=== PATIENT | male | born 1995 | race Caucasian/White ===

== ENCOUNTER 2023-11-06 16:05 | Emergency (ER) | payer OTHER, SELFPAY ==
--- NOTE | ~2023-11-06 | CT_ITS ---
EXAMINATION: CT ABDOMEN AND PELVIS WITHOUT CONTRAST CLINICAL INFORMATION: Left-sided pain. History of Crohn's disease COMPARISON: None available. TECHNIQUE: Multidetector volumetric imaging was performed from the superior aspect of the liver through the pubic symphysis. Sagittal and coronal reformatted images were obtained on the technologist's workstation. This CT examination was performed using dose optimization techniques as appropriate, variously including the following: *Automated exposure control *Adjustment of mA and/or kV according to patient size (this includes techniques or standardized protocols for targeted exams where dose is matched to indication/reason for exam; i.e. extremities or head) *Use of iterative reconstruction technique DLP: 698 mGy-cm FINDINGS: LUNG BASES: There is a small reticular opacity in the right middle lobe which may be atelectasis. No evidence of pneumoperitoneum LIVER, GALLBLADDER, AND BILIARY TREE: No suspicious abnormality in the liver. No calcified gallstone. No biliary dilation PANCREAS: Limited assessment. No definite abnormality. SPLEEN: No suspicious abnormality ADRENAL GLANDS: Within normal limits KIDNEYS AND URETERS: There is no dilation of the urinary collecting system. No opaque renal calculus. No suspicious renal mass. BLADDER: No focal bladder abnormality. GASTROINTESTINAL TRACT: The colon is collapsed but there could be diffuse colonic wall thickening. There is stranding associated with the terminal ileum which is thickened. I suspect submucosal edema and/or inflammation. There is some mesenteric stranding. There is a long segment of abnormal distal small bowel with areas of relative narrowing. There is some reticulation adjacent to some of the abnormal loops. There is an area of dilated small bowel in the lower abdomen. The duodenum is mildly distended. The stomach is not well evaluated. There are scattered nonspecific mesenteric lymph nodes. No definite acute appendicitis. ABDOMINAL WALL: No significant hernia is appreciated. LYMPH NODES: There are some mildly prominent inguinal lymph nodes. No significant upper abdominal free fluid. Small amounts of free fluid in the pelvic recesses. VASCULAR: There is no abdominal aortic aneurysm. PELVIC VISCERA: No suspicious abnormality. OSSEOUS STRUCTURES: No suspicious focal lesion CT/CT abdomen pelvis wo IV con IMPRESSION: Extensive bowel abnormalities. There is bowel wall thickening. There are areas of narrowing. There is mesenteric stranding. There is no definite abscess. There are areas of proximal dilation. I suspect multifocal inflammatory bowel disease. The study was performed without IV contrast. I suspect fibro-stenotic disease. I cannot diagnose definite penetrating complication. Fleischner guidelines were followed.
[2023-11-06 17:05] VITALS: BP 140/84; PULSE 71; RESP 16; TEMP 37; O2SAT 96; BMI 32.1
--- NOTE | 2023-11-06 17:09 | ED_ITS ---
HPI - General Adult General Chief complaint: Abdominal Pain Stated complaint: chrons flare up Time Seen by Provider: 11/06/23 19:34 Source: patient Mode of arrival: ambulatory Limitations: no limitations History of Present Illness HPI narrative: Patient's history of Crohn's disease diagnose about 1 year used to be on methotrexate and prednisone has not taken any medication for last 6 months since earlier today noticed discomfort in mid abdomen and on the left side same when he was diagnosed with Crohn disease . Patient had a hard bowel movement after the pain started. Has slight nausea feels slightly bloated no fever no chills no blood in the stool no fever no chills Related Data Previous Rx's Medication Instructions Recorded mesalamine 500 mg capsule,extended 1,000 mg (2 x 500 mg) PO BID #120 11/06/23 release (Pentasa) caps ondansetron 4 mg disintegrating 4 mg PO Q6-8H PRN nausea and 11/06/23 tablet vomiting #14 tabs prednisone 10 mg tablet 10 mg PO DIRECTED #63 tabs 11/06/23 tramadol 50 mg tablet 50 mg PO Q6H PRN pain #20 tabs 11/06/23 Allergies Allergy/AdvReac Type Severity Reaction Status Date / Time No Known Allergies Allergy Unverified 05/08/20 16:51 [No Known Allergies*] Review of Systems 2 Review of Systems: Yes all other systems are reviewed and are negative [facility] Social History Social History Advance Directives: No Advance Directives Information Provided: No Physical Exam ED Vital Signs: Vital Signs - 24 hr 11/06/23 17:05 11/06/23 19:56 11/06/23 21:21 Temperature 98.6 F 97.8 F 97.7 F Pulse Rate 71 63 64 Respiratory Rate 16 17 16 Blood Pressure 140/84 H 126/79 117/81 Pulse Oximetry 96 97 99 Oxygen Delivery Method Room Air Room Air Room Air BMI result Body Mass Index 32.1 Appearance: Alert. Oriented X3. No acute distress. Eyes: No pallor or icterus ENT: Pharynx normal. Oral Mucosa moist Neck: Normal inspection. Neck supple. CVS: Normal heart rate and rhythm. Pulses normal. Respiratory: No respiratory distress. Equal air entry bilateral, no wheezing/rales/rhonchi Abdomen: Soft tenderness in mid abdomen Bowel sounds are present, no mass palpable, no CVA tenderness Skin: Skin warm and dry. Normal skin color. Normal skin turgor. Extremities: No lower extremity edema. No calf tenderness Neuro: Oriented X 3. Course Course Course Narrative: This is a rapid medical exam: Additional HPI, ROS, PE not included below will be deferred to primary provider. Patient is a 28-year-old male presenting to the ED with compliant of lower abdominal pain, feels similar to prior Crohns flare. Plan: labs Medications Administered Discontinued Medications Generic Name Dose Route Start Last Admin Trade Name Esauq PRN Reason Stop Dose Admin Dexamethasone 10 mg 11/06/23 20:55 11/06/23 21:15 Dexamethasone 2 Mg Tablet PO 11/06/23 20:56 10 mg ONCE ONE Administration Ondansetron HCl 4 mg 11/06/23 20:55 11/06/23 21:14 Ondansetron Odt 4 Mg Tab.Rapdis TRANSLINGU 11/06/23 20:56 4 mg ONCE ONE Administration Medical Decision Making Medical Decision Making [facility] Narrative: Patient with flare-up of Crohn disease discharge on mesalamine and prednisone. Patient able tolerate p.o. fluids advised clear liquids Differential Diagnosis Differential Diagnoses: The differential diagnosis associated with the presentation includes Flare-up Crohn disease less partial bowel obstruct Lab Data [facility] Lab Attestation statement: I reviewed the patient's lab results. 11/06/23 17:20 11/06/23 17:20 Labs: Lab Results 11/06/23 11/06/23 Range/Units 17:20 19:20 WBC 10.9 H (4.8-10.8) X10*3/uL RBC 5.05 (4.60-5.80) X10*6/uL Hgb 14.0 (14.0-18.0) g/dl Hct 43.3 (42.0-52.0) % MCV 85.7 (80.0-98.0) fL MCH 27.7 (27.0-33.0) pg MCHC 32.3 (31.0-36.0) g/dl RDW 14.4 (11.0-16.0) % Plt Count 260 (160-400) X10*3/uL MPV 9.3 L (9.4-12.4) fL Immature Gran % (Auto) 0.5 H (0.0-0.4) % Neut % (Auto) 77.5 H (45-73) % Lymph % (Auto) 15.6 L (20-40) % [place] % (Auto) 5.3 (2-11) % Eos % (Auto) 0.9 (0-4) % Baso % (Auto) 0.2 (0-2) % Lymph # (Auto) 1.7 (1.2-4.9) X10*3/uL [place] # (Auto) 0.6 (0.1-1.2) X10*3/uL Eos # (Auto) 0.1 (0.0-0.4) X10*3/uL Baso # (Auto) 0.0 (0.0-0.2) X10*3/uL Abs Immat Gran (auto) 0.05 H (0.00-0.03) X10*3/uL Absolute Neuts (auto) 8.5 H (2.0-8.3) x10*3/uL Absolute Nucleated RBC 0.000 (0.0-0.012) X10*3/uL Nucleated RBC % (auto) 0.0 (0.0-0.2) /100WBC Sodium 143 (135-145) mmol/L Potassium 3.7 (3.3-5.1) mmol/L Chloride 106 (96-108) mmol/L Carbon Dioxide 28 (22-29) mmol/L Anion Gap 13 (12-20) BUN 7 L (9-16) mg/dL Creatinine 0.89 (0.5-1.4) mg/dL Estim Creat Clear Calc 168.4 Estimated GFR > 60 Random Glucose 92 (60-115) mg/dL Calcium 9.8 (8.4-10.2) mg/dL Total Bilirubin 0.8 (0.0-1.0) mg/dL AST 19 (5-37) U/L ALT 26 (0-40) U/L Alkaline Phosphatase 100 (39-117) U/L C-Reactive Protein 0.98 H (< or = 0.50) mg/dL Total Protein 7.6 (6.5-8.0) g/dL Albumin 4.1 (3.5-5.0) g/dL Urine Color Yellow Urine Appearance Clear Urine pH 6.0 (5.0-9.0) Ur Specific [place] 1.015 (1.005-1.025) Urine Protein Trace (Neg-Trace) mg/dL Urine Glucose (UA) Negative (Negative) mg/dL Urine Ketones Negative (Negative) mg/dL Urine Blood Large (3+) H (Negative) Urine Nitrite Negative (Negative) Ur Leukocyte Esterase Negative (Negative) Urine RBC 11-20 H (0-2) /HPF Urine WBC 0-5 (0-5) /HPF Ur Squamous Epith Cells 0-2 (0-2) /HPF Urine Bacteria None Seen (None Seen) Hyaline Casts 0-2 (0-2) /LPF Independent Interpretation I performed an independent interpretation of an: CT Scan Radiology Impression Discussion of test interpretation with radiology: I have reviewed the radiologist's reading. Discharge Plan Discharge Clinical Impression: Crohn's disease Patient Disposition: Home, Self-Care Instructions: Crohn Disease (ED) Additional Instructions: Clear liquids slowly advanced as tolerated Prednisone as prescribed Take Mesalamine as prescribed See linux programmer next week Report to the ER if worsening of the pain vomiting not getting better Prescriptions: New prednisone 10 mg tablet 10 mg PO DIRECTED Qty: 63 0RF Rx Instructions: see taper instructions; 60 mg Daily x3 days, 50 mg daily x3 days, 40 mg daily x3 days, 30 mg daily x3 days , 20 mg daily for 3 days , 10mg daily for 3 days mesalamine [Pentasa] 500 mg capsule, extended release 1,000 mg PO BID Qty: 120 0RF tramadol 50 mg tablet 50 mg PO Q6H PRN (Reason: pain) Qty: 20 0RF ondansetron 4 mg tablet,disintegrating 4 mg PO Q6-8H PRN (Reason: nausea and vomiting) Qty: 14 0RF Referrals: Eric Murillo MD [Physician] - 3 days Interventions: ED Discharge Assessment Last Done: 11/06/23 21:21 Discharge Date/Time: 11/06/23 21:22
[2023-11-06 17:24] LABS: MANUAL DIFF FLAG NO
[2023-11-06 17:25] LABS: Basophils Percent Auto 0.2 % (0-2); Eosinophils Absolute Auto 0.1 X10*3/uL (0.0-0.4); Eosinophils Percent Auto 0.9 % (0-4); Hematocrit 43.3 % (42.0-52.0); Imm Gran Abs Auto 0.05 X10*3/uL (0.00-0.03); Imm Gran Pct Auto 0.5 % (0.0-0.4); Lymphocytes Absolute Auto 1.7 X10*3/uL (1.2-4.9); Lymphocytes Percent Auto 15.6 % (20-40); Mean Corpuscular HGB Conc 32.3 g/dl (31.0-36.0); Mean Corpuscular Hemoglobin 27.7 pg (27.0-33.0); Mean Corpuscular Volume 85.7 fL (80.0-98.0); Mean Platelet Volume 9.3 fL (9.4-12.4); Monocytes Absolute Auto 0.6 X10*3/uL (0.1-1.2); Monocytes Percent Auto 5.3 % (2-11); Neutrophils Absolute Auto 8.5 x10*3/uL (2.0-8.3); Neutrophils Percent Auto 77.5 % (45-73); Platelet Count 260 X10*3/uL (160-400); Red Blood Count 5.05 X10*6/uL (4.60-5.80); Red Cell Distribution Width 14.4 % (11.0-16.0); White Blood Count 10.9 X10*3/uL (4.8-10.8)
[2023-11-06 17:43] LABS: Alanine Aminotransferase 26 U/L (0-40); Albumin Level 4.1 g/dL (3.5-5.0); Alkaline Phosphatase 100 U/L (39-117); Anion Gap 13 (12-20); Aspartate Amino Transferase 19 U/L (5-37); Bilirubin Total 0.8 mg/dL (0.0-1.0); Blood Urea Nitrogen 7 mg/dL (9-16); Calcium 9.8 mg/dL (8.4-10.2); Carbon Dioxide 28 mmol/L (22-29); Chloride 106 mmol/L (96-108); Creatinine Clr Calc Pharmacy 168.4; Estimated Glomerular Filt Rate > 60; Glucose Random 92 mg/dL (60-115); Potassium 3.7 mmol/L (3.3-5.1); Sodium 143 mmol/L (135-145); Total Protein 7.6 g/dL (6.5-8.0)
--- NOTE | 2023-11-06 19:21 | MHC.EDTECH ---
Patient brought into triage area,urine sample obtained and sent to lab.
[2023-11-06 19:32] LABS: Appearance Urine Clear; Color Urine Yellow; Glucose Urine UA Negative (Negative); Leukocyte Esterase Urine Negative (Negative); Nitrite Urine Negative (Negative); Specific Gravity - Urine 1.015 (1.005-1.025); UMIC TRIGGER UACC YES; Urine Blood Large (3+) (Negative); Urine Ketones Negative (Negative); Urine Protein Trace mg/dL (Neg-Trace)
[2023-11-06 19:35] LABS: Bacteria Urine None Seen (None Seen); Hyaline Casts Urine 0-2 /LPF (0-2); Squamous Epithelial Cell Urine 0-2 /HPF (0-2); WBC Urine 0-5 /HPF (0-5)
[2023-11-06 19:56] VITALS: BP 126/79; PULSE 63; RESP 17; TEMP 36.6; O2SAT 97
[2023-11-06 20:08] LABS: C Reactive Protein 0.98 mg/dL (< or = 0.50)
[2023-11-06] MEDS: Ondansetron ODT 4 MG TAB.RAPDIS TRANSLINGU (21:14)
[2023-11-06] MEDS: dexAMETHasone 2 MG TABLET 10 MG PO (21:15)
[2023-11-06 21:21] VITALS: BP 117/81; PULSE 64; RESP 16; TEMP 36.5; O2SAT 99
== END 2023-11-06 21:22 | disposition home or self-care (01) ==
PROVIDERS: Emergency Provider Internal Medicine
DX: K50.90 Crohn's disease, unspecified, without complications (principal)
CPT/HCPCS: 36415; 74176; 80053; 81001; 85025; 86140; 99283; 99284; J8540